=== PATIENT | female | born 1955 | race Caucasian/White ===

== ENCOUNTER → 2019-06-15 | Outpatient (CLI) | payer BC ==
--- NOTE | 2019-06-15 13:23 | RAD ---
Complete abdominal ultrasound 06/15/2019 11:00 AM Clinical History: Palpable pulsatile sensations Technique: Ultrasound examination of the abdomen was performed, and multiple static images were submitted for review. Comparison: None available Findings: Visualized pancreas is grossly unremarkable. The liver is normal in size measuring 14 cm longitudinally. Hepatic echotexture is normal. No focal lesions are seen in liver. Portal venous flow appears to be in the normal direction. The right kidney is grossly unremarkable in appearance measuring approximately 10 cm in length. The gallbladder is normal in appearance without evidence of wall thickening, stones, or sludge. Common bile duct is within normal limits at 5 mm in diameter. Visualized aorta and IVC are grossly unremarkable. No evidence of abdominal aortic aneurysm is identified. The common iliac arteries appear to be nondilated. Spleen is normal in size measuring 8 cm longitudinally. The left kidney is normal in appearance measuring approximately 9.5 cm longitudinally. IMPRESSION: 1. No sonographic evidence of acute intra-abdominal abnormality 2. No sonographic evidence of abdominal aortic aneurysm is identified Electronically signed by: Liborio Morel MD (06/15/2019 1:20 PM) [id number]
== END | disposition home or self-care (01) ==
LOC: US 10:29
PROVIDERS: ATTEND Nurse Practitioner Family
DX: R19.8 Other specified symptoms and signs involving the digestive system and abdomen (principal)
CPT/HCPCS: 76700